=== PATIENT | female | born 1980 | race Caucasian/White ===

== ENCOUNTER 2016-11-19 17:59 | Emergency (ER) | payer MEDICAID ==
[~2016-11-19] VITALS: Wt 95.0 kg
[2016-11-19] MEDS ORDERED: IBUP400T22 PO (18:56)
[2016-11-19] MEDS ORDERED: AZIT250T94 PO (18:56)
[2016-11-19 19:23] VITALS: BP 140/78; RESP 18; TEMP 98.3
--- NOTE | 2016-11-21 18:06 | ERD ---
ER Documentation Chief Complaint Date/Time DATE: 11/21/16 TIME: 17:51 Chief Complaint HPI This is a 36 year old female who presents to ER with sore throat x 10 days. No difficulty swallowing or difficulty breathing. Patient denies cough, rhinorrhea or rhinitis. No fevers or chills. No muffled voice. No drooling. ROS All systems reviewed and are negative except as per history of present illness. Medications Home Meds Active Scripts Ibuprofen* (Motrin*) 400 Mg Tab, 400 MG PO Q6, #15 TAB Prov:TIFFANY CHEUNG NP 11/19/16 Azithromycin* (Zithromax*) 250 Mg Tablet, 250 MG PO .ZPACK DIRECTED, #6 TAB TAKE 500 MG (2 TABS) THE FIRST DAY THEN 250 MG (1 TAB) DAYS 2-5 Prov:TIFFANY CHEUNG NP 11/19/16 Allergies Allergies: Coded Allergies: Penicillins (Verified Adverse Reaction, Mild, RASH, ITCHING, 04/18/07) PMhx/Soc Medical and Surgical Hx: pt denies Medical Hx, pt denies Surgical Hx Hx Alcohol Use: Yes (OCCASSIONALLY) Hx Substance Use: No Hx Tobacco Use: No Smoking Status: Never smoker Physical Exam Vitals Vital Signs Date Time Temp Pulse Resp B/P Pulse Ox O2 Delivery O2 Flow Rate FiO2 11/19/16 19:23 98.3 18 140/78 99 Room Air 11/19/16 18:00 98.3 71 18 157/91 99 Physical Exam Const: NAD, alert Head: Atraumatic Eyes: Normal Conjunctiva ENT: Normal External Ears, Nose and Mouth. Erythema without exudate to posterior pharynx. No peritonsillar abscess. Neck: Full range of motion..~ No meningismus. no lymphadenopathy Resp: Clear to auscultation bilaterally Cardio: Regular rate and rhythm, no murmurs Abd: Soft, non tender, non distended. Normal bowel sounds Skin: No petechiae or rashes Back: No midline or flank tenderness Ext: No cyanosis, or edema Neur: Awake and alert Psych: Normal Mood and Affect Procedures/MDM MDM: 36 year old female presents to ER with sore throat x 10 days. Patient is afebrile while in the ED. No drooling or muffled voice. Physical exam reveals erythematous posterior pharynx otherwise unremarkable. No exudate or peritonsillar abscess. Patient is concerned since she is having pain and it is not improving. Patient is requesting an antibiotic. Discussed at length with patient the risks of taking antibiotics that are not necessarily necessary. Patient verbalizes understanding. Low suspicion for epiglottitis, peritonsillar abscess, and deep space infection. Diagnosis is presumed strep pharyngitis. Patient is appropriate for outpatient management and will be discharged with prescription for azithromycin and ibuprofen. Follow up with PCP in the next 24- 48hrs for reassessment. Return to ED for any new or worsening symptoms. Patient verbalizes understanding. All questions answered at discharge. Departure Diagnosis: Primary Impression: Pharyngitis Pharyngitis/tonsillitis etiology: unspecified etiology Qualified Code: J02.9 - Pharyngitis, unspecified etiology Condition: Stable Patient Instructions: When You Have a Sore Throat Additional Instructions: Call your primary care doctor TOMORROW for an appointment during the next 2-3 days.See the doctor sooner or return here if your condition worsens before your appointment time. Return to ED for any high fever, chest pain, difficulty breathing, shortness breath, wheezing, vomiting, diarrhea, abdominal pain or any new or worsening symptoms. TIFFANY CHEUNG NP Nov 21, 2016 18:06
== END 2016-11-19 19:24 | disposition home or self-care (01) ==
LOC: FTE 17:59
DX: J02.9 Acute pharyngitis, unspecified (principal)
CPT/HCPCS: 99283

== ENCOUNTER 2017-11-12 17:46 | Emergency (ER) | END 2017-11-12 19:16 | disposition home or self-care (01) ==